=== PATIENT | female | born 1955 | race American Indian/Alaskan Native ===

== ENCOUNTER 2017-03-23 09:07 | Day surgery (SDC) | payer MEDICARE ==
[~2017-03-23 09:07] MED LIST: ANCEF/STERILE WATER 2 GM/20 ML 2 GM/20 ML SYRINGE IV NR; NACL 0.9% 1000 ML 1,000 ML IV SCH
[2017-03-23] MEDS ORDERED: DILAUDID ONE (10:42)
[2017-03-23] MEDS ORDERED: DIPRIVAN 10 MG/ML IV ONE (10:42)
[2017-03-23] MEDS ORDERED: XYLOCAINE MPF 2% ONE (10:42)
--- NOTE | 2017-03-23 10:45 | Anesthesia Day of Surgery ---
Anesthesia Day of Surgery - Day of Surgery Patient Examined: Yes Patient H&P Reviewed: Yes Patient is NPO: Yes Beta Blockers: Yes
--- NOTE | 2017-03-23 10:47 | Anesthesia Consultation ---
Anesthesia Consult and Med Hx Date of service: 03/23/17 - Airway Anesthetic Teeth Evaluation: Good, Partials (upper) ROM Head & Neck: Adequate Mental/Hyoid Distance: Adequate Mallampati Class: Class II Intubation Access Assessment: Probably Good - Pulmonary Exam CTA: Yes - Cardiac Exam Cardiac Exam: RRR - Pre-Operative Health Status ASA Pre-Surgery Classification: ASA4 Proposed Anesthetic Plan: General - Pulmonary Hx Smoking: No Hx Sleep Apnea: No - Cardiovascular System Hx Hypertension: Yes (FOR 19 YRS, DR. PIRES) - Central Nervous System Hx Seizures: No CVA: No Hx Psychiatric Problems: No - Endocrine Hx Renal Disease: Yes (HD TUESDAY, RIGHT PERMACATH) Hx End Stage Renal Disease: Yes (DR. CLINE- BOTTOM MAN) Hx Cirrhosis: No Hx Non-Insulin Dependent Diabetes: Yes (BS 223) - Other Systems Hx Cancer: No Hx Obesity: Yes
[2017-03-23] MEDS ORDERED: PEPCID PO NR (11:00)
[2017-03-23] MEDS ORDERED: VERSED IV NR (11:00)
[2017-03-23] MEDS ORDERED: PAPAVERINE ONE (12:15)
[2017-03-23] MEDS ORDERED: PROTAMINE SULFATE ONE (12:15)
[2017-03-23] MEDS ORDERED: NITROGLYCERIN SYRINGE 0 ML ONE (12:16)
[2017-03-23] MEDS ORDERED: XYLOCAINE 1%/ EPI 1:100,000 INFILTRATI ONE (12:16)
[2017-03-23] MEDS ORDERED: NACL 0.9% 500 ML 500 ML ONE (12:16)
[2017-03-23] MEDS ORDERED: MARCAINE 0.25% INFILTRATI ONE ×2 (12:16→13:37)
[2017-03-23] MEDS ORDERED: HEPARIN 10,000 UNITS/10 ML ONE (12:16)
[2017-03-23] MEDS ORDERED: HEPARIN 10,000 UNITS/10 ML IR ONE (13:36)
[2017-03-23] MEDS ORDERED: NACL 0.9% 500 ML IV ONE (13:37)
[2017-03-23] MEDS ORDERED: ZOFRAN ONE (14:13)
--- NOTE | 2017-03-23 14:26 | Operative Report ---
Operative Report Operative Report: Preoperative diagnosis: End-stage renal disease/dialysis dependent renal failure. Postop diagnosis: The same Procedure: Left brachiocephalic arteriovenous fistula creation. Surgeon: Juan Antonio Hopkins MD., RPVI Security Technician: none Anesthesia: Gen. LMA EBL: 10 mL IV fluids: 600 mL Findings: Adequate size left brachial artery, adequate size left cephalic vein, excellent thrill in the vein after the anastomosis. Disposition: To recovery Indications end-stage renal disease. Procedure in details: Patient was brought to the operating room and laid on the operating room table in supine position. After LMA anesthesia was achieved patient left arm was prepped and draped in the usual sterile fashion. The transverse incision above antecubital fossa was made using #15 blade. Subcutaneous tissue was divided with Bovie electrocautery. The left cephalic and antecubital vein was dissected free. The antecubital vein was disconnected from the distal cephalic vein and controlled was bulldog. It was heparinized with heparinized saline and dilated well. The left brachial artery was then dissected and encircled with Vessel loops proximally and distally. Patient received 3000 units of intravenous heparin. After 3 minutes the artery was occluded with vessel clamps and arteriotomy was made using #11 blade and Schmid scissors. The distal end of the vein was spatulated using Schmid scissors. The anastomosis was created using a running 6-0 Prolene running suture using BV1 needle. Prior to completion the artery was flushed proximally and distally and good forward and back bleeding was seen. Then anastomosis was completed the clamps were removed. The hemostasis was excellent. The strong thrill was appreciated over the cephalic vein. Once it was ascertained that hemostasis was good the skin was closed using 3-0 vicryl and 4-0 monocryl sutures. Patient tolerated procedure well. He was awakened and taken to the recovery room. At the end of the case 1/4 percent Marcaine when infiltrated into the incision for postoperative pain control. All sponge and needle counts were correct.
--- NOTE | 2017-03-23 14:29 | Short Stay Summary ---
Short Stay Documentation Date of service: 03/23/17 - History H&P: obtained from office - Allergies and Medications Current Medications: Allergies No Known Allergies Allergy (Unverified 03/15/17 12:21) Home Medications Medication Instructions Recorded Confirmed Last Taken Type Aspirin [Aspirin TAB] 325 mg PO QDAY 03/16/17 03/23/17 03/23/17 07:30 History AtorvaSTATin [Lipitor] 40 mg PO QHS 03/16/17 03/23/17 03/22/17 History Carvedilol [Coreg] 25 mg PO BID 03/16/17 03/23/17 03/23/17 07:30 History Glimepiride [Amaryl] 1 mg PO QAM 03/16/17 03/23/17 03/22/17 History Lanthanum Carbonate [Fosrenol] 500 mg PO TIDWM 03/16/17 03/23/17 03/22/17 History Sevelamer Carbonate [Renvela] 800 mg PO TIDWM 03/16/17 03/23/17 03/22/17 History Vit B Cplx #11/FA/C/Biot/Zn Ox 1 each PO QDAY 03/16/17 03/23/17 03/22/17 History [Dialyvite with Zinc Tablet] amLODIPine [Norvasc] 10 mg PO DAILY 03/16/17 03/23/17 03/23/17 07:30 History Active Medications Cefazolin Sodium (Ancef/Sterile Water 2 Gm/20 Ml) 2 gm in 20 mls @ 80 mls/hr IV PREOP NR PRN Reason: Protocol Stop: 03/23/17 23:59 Sodium Chloride (Nacl 0.9% 1000 Ml) 1,000 mls @ 42 mls/hr IV DIRECT RICHI Last Admin: 03/23/17 10:39 Dose: 42 mls/hr Midazolam HCl (Versed) 1 mg IV PREOP NR Stop: 03/23/17 23:59 Last Admin: 03/23/17 10:50 Dose: 1 mg - Brief post op/procedure progress note Procedure: Preoperative diagnosis: End-stage renal disease/dialysis dependent renal failure. Postop diagnosis: The same Procedure: Left brachiocephalic arteriovenous fistula creation. Surgeon: Supa Hopkins MD., RPVI Tank Wagon Operator: none Anesthesia: Gen. LMA EBL: 10 mL IV fluids: 600 mL Findings: Adequate size left brachial artery, adequate size left cephalic vein, excellent thrill in the vein after the anastomosis. Disposition: To recovery - Disposition Condition at discharge: Good Disposition: DC-01 TO HOME OR SELFCARE Short Stay Discharge Plan Activity: advance as tolerated, no driving until cleared by PCP, other (no heavy lifting was left arm for 6 weeks) Diet: renal Wound: open to air Follow up with: SUPA HOPKINS MD [Staff Physician] - 14 Days
[2017-03-23 15:56] VITALS: BP 142/68
--- NOTE | 2017-03-23 16:06 | Post Anesthesia Evaluation ---
- Post Anesthesia Evaluation Patient Participated: Yes Airway Patent: Yes Stable Respiratory Function: Yes Nausea/Vomiting: No Temp > 96.8F: Yes Pain Manageable: Yes Adequeate Hydration: Yes Anesthesia Complications: No
== END 2017-03-23 16:30 | disposition home or self-care (01) ==
LOC: OR 09:07
PROVIDERS: ATTEND Surgery Vascular Surgery
DX: E11.22 Type 2 diabetes mellitus with diabetic chronic kidney disease (principal); I12.0 Hypertensive chronic kidney disease with stage 5 chronic kidney disease or end stage renal disease; N18.6 End stage renal disease; K21.9 Gastro-esophageal reflux disease without esophagitis; E66.9 Obesity, unspecified; Z68.33 Body mass index [BMI] 33.0-33.9, adult; Z99.2 Dependence on renal dialysis; Z79.899 Other long term (current) drug therapy; Z79.82 Long term (current) use of aspirin; Z79.84 Long term (current) use of oral hypoglycemic drugs
CPT/HCPCS: 36415; 36821; 82962; 84132; J0690; J1170; J1644; J2250; J2405; J2704; J7030; J7040; J2440; J2720

== ENCOUNTER 2017-09-30 08:45 | Day surgery (SDC) | payer MEDICARE ==
[~2017-09-30 08:45] MED LIST changes: +DILAUDID ONE; +DIPRIVAN 10 MG/ML IV ONE; +HEPARIN 10,000 UNITS/10 ML IV ONE; +MARCAINE 0.5% INFILTRATI ONE; +NACL 0.9% 500 ML IRRIGATION ONE; +XYLOCAINE MPF 2% ONE
[2017-09-30] MEDS ORDERED: MARCAINE 0.5% 30 ML INFILTRATI ONE (09:06)
[2017-09-30] MEDS ORDERED: RIFADIN ONE (09:06)
[2017-09-30] MEDS ORDERED: NACL 0.9% 500 ML 500 ML ONE (09:06)
[2017-09-30] MEDS ORDERED: HEPARIN 10,000 UNITS/10 ML ONE (09:06)
[2017-09-30 09:41] LABS: Basophils # (Auto) 0.1 K/mm3 (0.0-0.1); Basophils % (Auto) 0.4 % (0.0-1.8); Eosinophils # (Auto) 0.2 K/mm3 (0.0-0.4); Eosinophils % (Auto) 1.1 % (0.0-4.3); Hematocrit 32.7 % (30.3-42.9); Hemoglobin 10.7 gm/dl (10.1-14.3); Lymphocytes # (Auto) 2.2 K/mm3 (1.2-5.4); Mean Corpuscular HGB Conc 33 % (30-34); Mean Corpuscular Hemoglobin 31 pg (28-32); Mean Corpuscular Volume 96 fl (79-97); Monocytes # (Auto) 2.1 K/mm3 (0.0-0.8); Monocytes % (Auto) 14.7 % (0.0-7.3); Platelet Count 225 K/mm3 (140-440); Red Blood Count 3.42 M/mm3 (3.65-5.03); Red Cell Distribution Width 14.2 % (13.2-15.2)
[2017-09-30 09:49] LABS: Calcium 8.3 mg/dL (8.4-10.2)
[2017-09-30] MEDS ORDERED: ZOFRAN IV PRN (09:53)
[2017-09-30] MEDS ORDERED: SUBLIMAZE IV PRN (09:53)
--- NOTE | 2017-09-30 09:55 | Anesthesia Day of Surgery ---
Anesthesia Day of Surgery - Day of Surgery Patient Examined: Yes Patient H&P Reviewed: Yes Patient is NPO: Yes
--- NOTE | 2017-09-30 09:55 | Anesthesia Consultation ---
Anesthesia Consult and Med Hx Date of service: 09/30/17 - Airway Anesthetic Teeth Evaluation: Poor Mental/Hyoid Distance: Adequate Mallampati Class: Class II Intubation Access Assessment: Probably Good - Pulmonary Exam CTA: Yes - Cardiac Exam Cardiac Exam: RRR - Pre-Operative Health Status ASA Pre-Surgery Classification: ASA4 Proposed Anesthetic Plan: General - Pulmonary Hx Smoking: No Hx Sleep Apnea: No - Cardiovascular System Hx Hypertension: Yes (FOR 19 YRS, DR. 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
[2017-09-30] MEDS ORDERED: QUELICIN ONE (10:49)
[2017-09-30] MEDS ORDERED: DECADRON ONE (10:49)
[2017-09-30] MEDS ORDERED: ZOFRAN ONE (10:49)
[2017-09-30] MEDS ORDERED: HEPARIN 10,000 UNITS/10 ML IV ONE (11:44)
[2017-09-30] MEDS ORDERED: NACL 0.9% 500 ML IRRIGATION ONE (11:44)
[2017-09-30] MEDS ORDERED: MARCAINE 0.5% INFILTRATI ONE (13:14)
--- NOTE | 2017-09-30 13:36 | Post Anesthesia Evaluation ---
- Post Anesthesia Evaluation Patient Participated: No (resting) Airway Patent: Yes Stable Respiratory Function: Yes Nausea/Vomiting: No Temp > 96.8F: Yes Pain Manageable: Yes Adequeate Hydration: Yes Anesthesia Complications: No
--- NOTE | 2017-09-30 14:46 | Short Stay Summary ---
Short Stay Documentation Date of service: 09/30/17 Narrative H&P: See H&P - History H&P: obtained from office - Allergies and Medications Current Medications: Allergies No Known Allergies Allergy (Unverified 03/15/17 12:21) Home Medications Medication Instructions Recorded Confirmed Last Taken Type Aspirin [Aspirin TAB] 325 mg PO QDAY 03/16/17 09/30/17 03/23/17 07:30 History AtorvaSTATin [Lipitor] 40 mg PO QHS 03/16/17 09/30/17 03/22/17 History B Complex 11/Folic/C/Biot/Zinc 1 each PO QDAY 03/16/17 09/30/17 03/22/17 History [Dialyvite with Zinc Tablet] Carvedilol [Coreg] 25 mg PO BID 03/16/17 09/30/17 03/23/17 07:30 History Glimepiride [Amaryl] 1 mg PO QAM 03/16/17 09/30/17 03/22/17 History Lanthanum Carbonate [Fosrenol] 500 mg PO TIDWM 03/16/17 09/30/17 03/22/17 History Sevelamer Carbonate [Renvela] 800 mg PO TIDWM 03/16/17 09/30/17 03/22/17 History amLODIPine [Norvasc] 10 mg PO DAILY 03/16/17 09/30/17 03/23/17 07:30 History oxyCODONE /ACETAMINOPHEN [Percocet 1 - 2 tab PO Q4HR #40 tab 03/23/17 09/30/17 Unknown Rx 5/325] Active Medications Fentanyl (Sublimaze) 50 mcg IV Q5MIN PRN PRN Reason: Pain , Severe (7-10) Stop: 09/30/17 18:00 Cefazolin Sodium (Ancef/Sterile Water 2 Gm/20 Ml) 2 gm in 20 mls @ 80 mls/hr IV PREOP NR PRN Reason: Protocol Stop: 09/30/17 23:59 Sodium Chloride (Nacl 0.9% 1000 Ml) 1,000 mls @ 42 mls/hr IV DIRECT RICHI Last Admin: 09/30/17 10:16 Dose: 42 mls/hr Ondansetron HCl (Zofran) 4 mg IV ONCE PRN PRN Reason: Nausea And Vomiting Stop: 09/30/17 18:00 - Brief post op/procedure progress note Date of procedure: 09/30/17 Pre-op diagnosis: Complications of Dialysis Access Post-op diagnosis: same Procedure: 1. Revision of Left Brachiocephalic Arteriovenous Fistula (Left Cephalic Arteriovenous Fistula Turndown Procedure) 2. Removal of Right Internal Jugular Permacath Anesthesia: FANG Surgeon: ALEKSEY CADENA Estimated blood loss: minimal Pathology: list (Right internal jugula permacath) Specimen disposition: discarded Condition: stable - Disposition Condition at discharge: Good Disposition: DC-01 TO HOME OR SELFCARE Short Stay Discharge Plan Activity: other (no heavy lifting with left arm) Wound: remove dressing (24 hours), other (okay to wash the left arm wound with soap and water but do not soak in water) Follow up with: ALEKSEY CADENA MD [Staff Physician] - 14 Days Prescriptions: HYDROcodone/APAP 7.5-325 [[place] 7.5/325] 1 each PO Q6HR PRN #40 tablet PRN Reason: Pain
--- NOTE | 2017-09-30 14:51 | Operative Report ---
Operative Report Operative Report: Date of Procedure: 09/30/2017 Pre-operative Diagnosis: Complications of Dialysis Access Post-operative Diagnosis: Same Procedure(s): 1. Revision of Left Brachiocephalic Arteriovenous Fistula (Left Cephalic Arteriovenous Fistula Turndown Procedure) 2. Removal of Right Internal Jugular Permacath Surgeon: Lorne Galvin M.D. Television Production Assistant: None Anesthesia: Gen. Endotracheal Anesthesia EBL: Minimal Counts: Correct Complications: None Condition: Stable Findings: Palpable thrill in the fistula at the completion of the case. Specimen: Right internal jugular permacath was discarded. Indication: The patient is a 61 year old female with a history of end stage renal disease who has a left brachiocephalic AVF that has an outflow occlusion that is not amenable to endovascular intervention. She is in need of open repair to salvage the fistula. She had a right internal jugular permacath placed for dialysis access until the fistula could be repaired and this will be removed at the time of repair. She and her were given the risk, benefits, and alternative procedures, and consented to the procedures. Description of Procedure: The patient was brought into the operating room and placed in supine position. After general endotracheal anesthesia was achieved her left arm was prepped and draped in normal sterile fashion. A longitudinal incision was created in the upper arm, near the deltopectoral groove, centered between the cephalic vein and the axillary vein. The cephalic vein was dissected through the incision, circumferentially, and all side branches were suture ligated and divided. Once I insured that I had enough length of cephalic vein mobilized, I turned my attention to the axillary vein. I used the same incision to dissect down to the axillary vein. I dissected around it circumferentially and controlled it with a vessel loop. I systemically heparinized the patient and then controlled the arterial inflow of the fistula with an angled Debakey clamp. I suture ligated and divided the distal fistula. I used a Satinsky clamp to control the Axillary vein and then created a venotomy using an 11 blade and Schmid scissors. I beveled the distal end of the cephalic vein and then created and end-to- side anastamosis between the cephalic vein and the axillary vein using a 6-0 Prolene in running fashion. Prior to completing the anastamosis I flashed the fistula as well as the vein and the flushed them with heparinized saline. I completed the the anastamosis and removed all clamps allowing flow into the fistula which had a palpable thrill. Hemostasis within the wound was achieved with Quickclot. Once hemostasis was achieved the wound was anesthesized with 0.5% Marcaine and closed in 2 layers using a 3-0 Vicryl in running fashion in the deep dermal layer and a 4-0 Monocryl in running fashion in the subcuticular layer. The skin was dressed with skin glue. The sterile field was the broken. The patients indwelling permacath was then prepped and draped in normal sterile fashion. Scissors were used to cuts the sutures and the permacath was then pulled through the exit site. Pressure was held, on the entry site on the neck, for approximately 10 minutes, until hemostasis was achieved. The exit site on the chest was dresses with a sterile 4 x 4 and Tegaderm. The patient tolerated both procedure well. All sponge, needle, and instrument counts were correct. The patient was taken to the recovery area in stable condition.
[2017-09-30 15:23] VITALS: BP 144/79
== END 2017-09-30 15:30 | disposition home or self-care (01) ==
LOC: OR 08:45
PROVIDERS: ATTEND Surgery Vascular Surgery
DX: T82.898A Other specified complication of vascular prosthetic devices, implants and grafts, initial encounter (principal); I12.0 Hypertensive chronic kidney disease with stage 5 chronic kidney disease or end stage renal disease; E11.22 Type 2 diabetes mellitus with diabetic chronic kidney disease; N18.6 End stage renal disease; E66.9 Obesity, unspecified; Z68.33 Body mass index [BMI] 33.0-33.9, adult; Z79.899 Other long term (current) drug therapy; Y83.2 Surgical operation with anastomosis, bypass or graft as the cause of abnormal reaction of the patient, or of later complication, without mention of misadventure at the time of the procedure
CPT/HCPCS: 36415; 36832; 80048; 82962; 85025; C1757; J0330; J0690; J1100; J1170; J1644; J2405; J2704; J7030; J7040; J3490

== ENCOUNTER 2018-02-20 08:15 | Day surgery (SDC) | payer MEDICARE ==
[~2018-02-20 08:15] MED LIST changes: -DILAUDID ONE; -DIPRIVAN 10 MG/ML IV ONE; -HEPARIN 10,000 UNITS/10 ML IV ONE; -MARCAINE 0.5% INFILTRATI ONE; -NACL 0.9% 500 ML IRRIGATION ONE; -XYLOCAINE MPF 2% ONE
[2018-02-20 09:32] LABS: Basophils # (Auto) 0.1 K/mm3 (0.0-0.1); Basophils % (Auto) 0.6 % (0.0-1.8); Eosinophils # (Auto) 0.2 K/mm3 (0.0-0.4); Hematocrit 35.5 % (30.3-42.9); Hemoglobin 11.7 gm/dl (10.1-14.3); Lymphocytes # (Auto) 2.1 K/mm3 (1.2-5.4); Lymphocytes % (Auto) 20.6 % (13.4-35.0); Mean Corpuscular HGB Conc 33 % (30-34); Mean Corpuscular Hemoglobin 31 pg (28-32); Mean Corpuscular Volume 95 fl (79-97); Monocytes # (Auto) 1.4 K/mm3 (0.0-0.8); Monocytes % (Auto) 13.5 % (0.0-7.3); Platelet Count 195 K/mm3 (140-440); Red Blood Count 3.73 M/mm3 (3.65-5.03); Red Cell Distribution Width 15.2 % (13.2-15.2)
[2018-02-20 09:51] LABS: Calcium 8.5 mg/dL (8.4-10.2)
--- NOTE | 2018-02-20 10:21 | Anesthesia Consultation ---
Anesthesia Consult and Med Hx Date of service: 02/20/18 - Airway Anesthetic Teeth Evaluation: Poor ROM Head & Neck: Adequate Mental/Hyoid Distance: Adequate Mallampati Class: Class II Intubation Access Assessment: Probably Good - Pulmonary Exam CTA: Yes - Cardiac Exam Cardiac Exam: RRR - Pre-Operative Health Status ASA Pre-Surgery Classification: ASA4 Proposed Anesthetic Plan: General - Pulmonary Hx Smoking: No - Cardiovascular System Hx Hypertension: Yes (FOR 19 YRS, DR. 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
--- NOTE | 2018-02-20 10:21 | Anesthesia Day of Surgery ---
Anesthesia Day of Surgery - Day of Surgery Patient Examined: Yes Patient H&P Reviewed: Yes Patient is NPO: Yes
[2018-02-20] MEDS ORDERED: ZOFRAN IV PRN (10:22)
[2018-02-20] MEDS ORDERED: DILAUDID IV PRN (10:22)
[2018-02-20] MEDS ORDERED: RIFADIN ONE (12:12)
[2018-02-20] MEDS ORDERED: HEPARIN 10,000 UNITS/10 ML ONE (12:12)
[2018-02-20] MEDS ORDERED: MARCAINE 0.5% 30 ML INFILTRATI ONE (12:12)
[2018-02-20] MEDS ORDERED: NACL 0.9% 500 ML 500 ML ONE (12:13)
[2018-02-20] MEDS ORDERED: DIPRIVAN 10 MG/ML IV ONE (12:14)
[2018-02-20] MEDS ORDERED: XYLOCAINE CARDIAC IV ONE (12:15)
[2018-02-20] MEDS ORDERED: DILAUDID ONE (12:16)
[2018-02-20] MEDS ORDERED: MARCAINE 0.5% INFILTRATI ONE (13:14)
[2018-02-20] MEDS ORDERED: NACL 0.9% IR ONE (13:14)
[2018-02-20] MEDS ORDERED: HEPARIN 10,000 UNITS/10 ML 2,000 UNIT in NACL 0.9% 500 ML 500 ML IR ONE (13:15)
[2018-02-20] MEDS ORDERED: DECADRON ONE (13:25)
[2018-02-20] MEDS ORDERED: ZOFRAN ONE (13:25)
--- NOTE | 2018-02-20 14:32 | Short Stay Summary ---
Short Stay Documentation Date of service: 02/20/18 Narrative H&P: See H&P - History H&P: obtained from office - Allergies and Medications Current Medications: Allergies No Known Allergies Allergy (Unverified 03/15/17 12:21) Home Medications Medication Instructions Recorded Confirmed Last Taken Type Aspirin [Aspirin TAB] 325 mg PO QDAY 03/16/17 02/20/18 02/19/18 History AtorvaSTATin [Lipitor] 40 mg PO QHS 03/16/17 02/20/18 02/19/18 History Carvedilol [Coreg] 25 mg PO BID 03/16/17 02/20/18 02/20/18 07:15 History Glimepiride [Amaryl] 1 mg PO QAM 03/16/17 02/20/18 02/19/18 History Lanthanum Carbonate [Fosrenol] 500 mg PO TIDWM 03/16/17 02/20/18 02/19/18 History amLODIPine [Norvasc] 10 mg PO DAILY 03/16/17 02/20/18 02/20/18 07:15 History Ergocalciferol [Vitamin D2] 1 cap PO QWEEK 02/20/18 02/20/18 02/13/18 History Active Medications Hydromorphone HCl (Dilaudid) 0.5 mg IV Q10MIN PRN PRN Reason: Pain , Severe (7-10) Stop: 02/20/18 18:00 Cefazolin Sodium (Ancef/Sterile Water 2 Gm/20 Ml) 2 gm in 20 mls @ 80 mls/hr IV PREOP NR; Protocol Stop: 02/20/18 23:59 Sodium Chloride (Nacl 0.9% 1000 Ml) 1,000 mls @ 42 mls/hr IV DIRECT RICHI Last Admin: 02/20/18 09:05 Dose: 42 mls/hr Ondansetron HCl (Zofran) 4 mg IV ONCE PRN PRN Reason: Nausea And Vomiting Stop: 02/20/18 18:00 - Brief post op/procedure progress note Date of procedure: 02/20/18 Pre-op diagnosis: Complications of Dialysis Access Post-op diagnosis: same Procedure: Revision with Elevation of Left Brachiocephalic Arteriovenous Fistula Anesthesia: GETA Surgeon: ALEKSEY CADENA Estimated blood loss: other (150 mL) Pathology: none Condition: stable - Disposition Condition at discharge: Good Disposition: DC-01 TO HOME OR SELFCARE Short Stay Discharge Plan Activity: other (no heavy lifting with left arm) Wound: open to air, keep clean and dry, other (okay to wash the wound with soap and water but do not soak in water) Follow up with: ALEKSEY CADENA MD [Staff Physician] - 14 Days Prescriptions: HYDROcodone/APAP 7.5-325 [[place] 7.5/325] 1 each PO Q6HR PRN #40 tablet PRN Reason: Pain
--- NOTE | 2018-02-20 14:37 | Operative Report ---
Operative Report Operative Report: Date of Procedure: 02/20/2018 Pre-operative Diagnosis: Complications of Dialysis Access Post-operative Diagnosis: Same Procedure(s): 1. Revision with Elevation of Left Brachiocephalic Arteriovenous Fistula Surgeon: Lorne Galvin M.D. Char Puller: Magali Anesthesia: Gen. Endotracheal Anesthesia EBL: 150 mL Counts: Correct Complications: None Condition: Stable Findings: Easily palpable thrill in fistula at the completion of the case. Specimen: None Indication: The patient is a 62-year-old female with a history of end-stage renal disease who has a left arm brachiocephalic fistula that is difficult to access secondary to depth. She is in need of elevation. She was given the risks, benefits, and alternative procedures and consented to the procedure. Description of Procedure: The patient was brought into the operating room and laid in supine position. After general endotracheal anesthesia was achieved her left arm was prepped and draped in normal sterile fashion. A longitudinal incision was created and the left arm, centered over the fistula, extending from the deltoid down to just above the antecubital crease. Sharp dissection was used to carry the dissection down to the fistula. Metzenbaums were used to dissect circumferentially around the fistula and all side branches were suture ligated and divided. Once the fistula was free throughout the entire length of the incision a subcutaneous flap was created just below the level of the dermis on the lateral portion of the incision and the fistula was placed within the flap. Hemostasis within the wound was achieved with quick clot. Once hemostasis was achieved the wound was anesthetized with 0.5% Marcaine and then closed in 2 layers using 3-0 Vicryl in running fashion in the deep dermal layer and a 4-0 Monocryl in running fashion subcuticular and then dressed with Dermabond. The patient tolerated the procedure well. All sponge, needle, and instrument counts were correct. The patient was taken to the recovery area in stable condition.
[2018-02-20 17:05] VITALS: BP 164/91
== END 2018-02-20 16:37 | disposition home or self-care (01) ==
LOC: OR 08:15
PROVIDERS: ATTEND Surgery Vascular Surgery
DX: T82.898A Other specified complication of vascular prosthetic devices, implants and grafts, initial encounter (principal); E11.22 Type 2 diabetes mellitus with diabetic chronic kidney disease; I12.0 Hypertensive chronic kidney disease with stage 5 chronic kidney disease or end stage renal disease; N18.6 End stage renal disease; K21.9 Gastro-esophageal reflux disease without esophagitis; E66.9 Obesity, unspecified; Z79.899 Other long term (current) drug therapy; Y83.2 Surgical operation with anastomosis, bypass or graft as the cause of abnormal reaction of the patient, or of later complication, without mention of misadventure at the time of the procedure; Z79.82 Long term (current) use of aspirin; Z79.4 Long term (current) use of insulin; Z68.33 Body mass index [BMI] 33.0-33.9, adult
CPT/HCPCS: 36415; 36832; 80048; 82962; 85025; J0690; J1100; J1170; J1644; J2001; J2405; J2704; J7030; J7040; J3490

== ENCOUNTER 2018-06-16 06:43 | Day surgery (SDC) | payer MEDICARE ==
[2018-06-16 07:43] LABS: Basophils # (Auto) 0.1 K/mm3 (0.0-0.1); Basophils % (Auto) 0.4 % (0.0-1.8); Eosinophils # (Auto) 0.2 K/mm3 (0.0-0.4); Eosinophils % (Auto) 1.9 % (0.0-4.3); Hematocrit 33.4 % (30.3-42.9); Hemoglobin 11.2 gm/dl (10.1-14.3); Lymphocytes # (Auto) 3.1 K/mm3 (1.2-5.4); Lymphocytes % (Auto) 24.8 % (13.4-35.0); Mean Corpuscular HGB Conc 34 % (30-34); Mean Corpuscular Hemoglobin 32 pg (28-32); Mean Corpuscular Volume 95 fl (79-97); Monocytes # (Auto) 1.6 K/mm3 (0.0-0.8); Monocytes % (Auto) 12.9 % (0.0-7.3); Platelet Count 250 K/mm3 (140-440); Red Blood Count 3.51 M/mm3 (3.65-5.03); Red Cell Distribution Width 14.5 % (13.2-15.2)
[2018-06-16 07:54] LABS: Partial Thromboplastin Time 26.9 Sec. (24.2-36.6)
[2018-06-16 07:56] LABS: Calcium 9.2 mg/dL (8.4-10.2)
[2018-06-16] MEDS ORDERED: HumaLOG SUB-Q ONE (09:13)
[2018-06-16] MEDS ORDERED: HEPARIN/NS 5000 UNIT/500ML(CATH LAB) 1,000 ML IR ONE (11:48)
[2018-06-16] MEDS ORDERED: XYLOCAINE 2% INFILTRATI ONE (11:51)
[2018-06-16] MEDS ORDERED: NACL 0.9% 250ML 250 ML ONE (12:00)
--- NOTE | 2018-06-16 12:08 | Operative Report ---
Operative Report Operative Report: EXAM: 1. Ultrasound guided access of the left peripheral basilic vein towards the venous outflow. 2. Fistulogram. 3. Angioplasty of the distal basilic vein and mid basilic vein with a 7 mm x 60 mm angioplasty balloon 4. Stenting of the distal basilic vein with a 8 mm x 100 mm Viabahn stent- graft post dilated with a 7 mm x 60 mm angioplasty balloon and 8 mm x 40 mm conquest balloon. 5. Angioplasty of the mid to distal basilic vein with an 8 mm x 40 mm conquest angioplasty balloon. 6. Ultrasound guided access of the left mid basilic vein towards the anastomosis. 7. Selection of the brachial artery in a retrograde fashion with angiography of the left upper extremity. 8. Cutting balloon angioplasty of the anastomosis with a 5 mm x 20 mm angioplasty balloon. 9. Angioplasty of the anastomosis with a 6 mm x 60 mm angioplasty balloon. 10. Stenting of the mid to distal basilic vein with an 8 mm x 80 mm covered Covera stent-graft with post dilatation with an 8 mm x 40 mm angioplasty balloon. DATE: 06/16/18 STOCK PLAN ADMINISTRATOR: IVAN DOMINIQUE MD INDICATION: Malfunctioning left upper extremity AV fistula. MEDICATIONS: Please see nursing report for full details. DEVICES: 7 mm x 60 mm angioplasty balloon 8 mm x 40 mm conquest angioplasty balloon 6 mm x 60 mm angioplasty balloon 5 mm x 20 mm cutting angioplasty balloon 8 mm x 100 mm Viabahn stent-graft 8 mm x 80 mm Covera stent-graft PROCEDURE: The risks, benefits, and alternatives of the procedure were discussed and written informed consent was obtained. The patient was transported in stable condition to the angiography suite. The patient's left arm AV brachial basilic fistula was assessed by ultrasound and was patent. The patient was prepped and draped in a sterile fashion. Under ultrasound guidance, the left arm AV peripheral basilic vein was accessed with a 21-gauge micropuncture needle. The area was anesthetized prior to access. 0.018 inch wire was advanced through the micropuncture needle into the fistula and then the needle was exchanged for a 5 Burmese transitional dilator. The inner dilator and wire were removed and a 0.035 inch wire was advanced through the venous outflow. The transitional dilator was exchanged for a 6 Burmese short sheath. Fistulogram was performed of the venous outflow and central veins. Reflux into the arterial anastomosis was performed. Digital subtraction angiography demonstrated 99% narrowing at the distal basilic vein entry into the axillary vein, and diffuse 50% narrowing of the distal basilic vein with focal areas of 99% narrowing. The mid to distal basilic vein had a 50% narrowing with a focal high-grade narrowing. The mid basilic vein was patent. The peripheral basilic vein was patent. The anastomosis was 99% narrowed. 7 mm x 60 mm angioplasty balloon was then used to perform angioplasty of the distal basilic vein and mid basilic vein. Digital subtraction angiography demonstrated brisk recoil of the distal basilic vein as it entered into the axillary vein. There were multifocal areas of residual narrowing resulting in a regular appearance. This portion of the vein has been previously recanalized and is of poor quality. Sheath was upsized to a 7 Burmese sheath. 8 mm x 100 mm Viabahn stent-graft was then deployed in the distal basilic vein. This was post-dilate up to 7 mm x 60 mm angioplasty balloon and 8 mm x 40 mm angioplasty balloon. Digital subtraction angiography demonstrated residual narrowing in the mid to distal basilic vein, but excellent flow through the newly placed stent-graft. 8 mm x 40 mm angioplasty balloon was then used to perform angioplasty of the mid to distal basilic vein at high pressure for 3 minutes. Digital subtraction angiography demonstrated minimal less than 10% residual narrowing at this area. Under ultrasound guidance, the left arm AV mid to peripheral basilic vein was accessed with a 21-gauge micropuncture needle. The area was anesthetized prior to access. 0.018 inch wire was advanced through the micropuncture needle into the fistula and then the needle was exchanged for a 5 Burmese transitional dilator. The inner dilator and wire were removed and a 0.035 inch wire was advanced through the anastamosis. The transitional dilator was exchanged for a 6 Burmese short sheath. Angled catheter was advanced over the wire and used to select the axillary and brachial artery in retrograde fashion. Digital subtraction angiography was performed demonstrating patency of the brachial artery proximal and distal to the anastomosis with 99% narrowing of the anastomosis and perianastomotic involvement. 5 mm x 20 mm cutting angioplasty balloon was then used to perform angioplasty of the anastomosis and perianastomotic region. Digital subtraction angiography demonstrated significant improvement. 6 mm x 60 mm angioplasty balloon was then used to perform angioplasty of the anastomosis and perianastomotic region. There was no residual narrowing afterwards. There is brisk flow into the AV access. Digital subtraction angiography was then performed to evaluate the venous outflow. Unfortunately, the mid to distal basilic vein had significantly recoil with 50% residual narrowing. Sheath was upsized to 8 Burmese. 8 mm x 80 mm Covera stent-graft was deployed in the mid to distal basilic vein and post dilated with an 8 mm angioplasty balloon. Digital subtraction angiography was performed demonstrating brisk flow through the fistula without any residual narrowing within the fistula. The axillary vein was patent. The subclavian vein was patent. The left innominate vein was patent. The SVC was patent. All wires were removed and each site site was closed with a 3-0 Vicryl suture. Hemostasis was achieved with slight manual compression. The patient was transported from the angiography suite to the recovery area in stable condition. IMPRESSION: Successful fistulogram and venoplasty as descibed above. Successful stent-graft placement in the peripheral portion of the AV fistula. Successful first order selection of the axillary artery with angiography of the left upper extremity.
--- NOTE | 2018-06-16 12:08 | Short Stay Summary ---
Short Stay Documentation Date of service: 06/16/18 Narrative H&P: 62 year old female with AVF malfunction requiring stenting and angioplasty. - History Principal diagnosis: AVF malfunction H&P: obtained from office - Allergies and Medications Current Medications: Allergies No Known Allergies Allergy (Verified 06/16/18 07:08) Home Medications Medication Instructions Recorded Confirmed Last Taken Type Aspirin [Aspirin TAB] 325 mg PO QDAY 03/16/17 06/16/18 06/15/18 History AtorvaSTATin [Lipitor] 40 mg PO QHS 03/16/17 06/16/18 06/15/18 History Carvedilol [Coreg] 25 mg PO BID 03/16/17 06/16/18 06/15/18 History Glimepiride [Amaryl] 1 mg PO QAM 03/16/17 06/16/18 06/15/18 History Lanthanum Carbonate [Fosrenol] 500 mg PO TIDWM 03/16/17 06/16/18 06/15/18 History amLODIPine [Norvasc] 10 mg PO DAILY 03/16/17 06/16/18 06/15/18 History Ergocalciferol [Vitamin D2] 1 cap PO QWEEK 02/20/18 06/16/18 06/15/18 History Insulin Aspart [NovoLOG Flexpen] 10 unit SQ BID 06/16/18 06/16/18 06/15/18 History Active Medications Cefazolin Sodium (Ancef/Sterile Water 2 Gm/20 Ml) 2 gm in 20 mls @ 80 mls/hr IV PREOP NR; Protocol Stop: 06/16/18 23:59 Sodium Chloride (Nacl 0.9% 1000 Ml) 1,000 mls @ 42 mls/hr IV DIRECT RICHI - Physical exam General appearance: no acute distress Lungs: Normal air movement Gastrointestinal: normal - Brief post op/procedure progress note Date of procedure: 06/16/18 Pre-op diagnosis: AVF malfunction Post-op diagnosis: same Procedure: Fistulogram Angioplasty of the venous anastamosis and basilic vein with a 7 mm x 60 mm [place] 8 mm x 40 mm Conquest angioplasty balloon Stent graft placement in the venous anastamosis and the distal basilic vein with a 8 mm x 10 cm Viabahn and 8 mm x 8 cm Covera Angioplasty of the arterial anastamosis with a 5 mm cutting balloon and 6 mm angioplasty balloon Anesthesia: local (w/ conscious sedation) Surgeon: IVAN DOMINIQUE Estimated blood loss: minimal Condition: stable - Hospital course Hospital course: Ready for discharge 1 hr after last sedation. - Disposition Disposition: - TO HOME OR SELFCARE - Discharge Diagnoses (1) Malfunction of arteriovenous dialysis fistula Status: Acute (2) ESRD (end stage renal disease) Status: Acute Short Stay Discharge Plan Activity: advance as tolerated Weight Bearing Status: Weight Bear as Tolerated Diet: renal Wound: keep clean and dry, other (contact office for suture removal in 1 week with Georgie ESPINOSA) Follow up with: PRIMARY CARE, [Primary Care Provider] - 7 Days
[2018-06-16] MEDS: XYLOCAINE 1%/ EPI 1:100,000 INFILTRATI ONE ×3 (12:24→13:41)
[2018-06-16] MEDS: VERSED ONE ×3 (12:24→13:35)
[2018-06-16] MEDS: SUBLIMAZE ONE ×3 (12:24→13:35)
[2018-06-16 14:48] VITALS: BP 166/84
== END 2018-06-16 15:10 | disposition home or self-care (01) ==
LOC: CATHLABREC 06:43
PROVIDERS: ATTEND Radiology Diagnostic Radiology
DX: T82.858A Stenosis of other vascular prosthetic devices, implants and grafts, initial encounter (principal); E11.22 Type 2 diabetes mellitus with diabetic chronic kidney disease; I12.0 Hypertensive chronic kidney disease with stage 5 chronic kidney disease or end stage renal disease; N18.6 End stage renal disease; E78.00 Pure hypercholesterolemia, unspecified; K21.9 Gastro-esophageal reflux disease without esophagitis; M19.90 Unspecified osteoarthritis, unspecified site; E11.39 Type 2 diabetes mellitus with other diabetic ophthalmic complication; H42 Glaucoma in diseases classified elsewhere; E66.9 Obesity, unspecified; Z68.37 Body mass index [BMI] 37.0-37.9, adult; Z79.82 Long term (current) use of aspirin; Z79.4 Long term (current) use of insulin; Z79.899 Other long term (current) drug therapy; Z98.890 Other specified postprocedural states; Y83.2 Surgical operation with anastomosis, bypass or graft as the cause of abnormal reaction of the patient, or of later complication, without mention of misadventure at the time of the procedure
CPT/HCPCS: 36415; 36903; 80048; 82962; 85025; 85610; 85730; 96372; 99156; 99157; C1725; C1751; C1769; C1874; C1894; J1644; J2250; J3010; J7050; J1815; Q9967